=== PATIENT | male | born 1965 | race Caucasian/White ===

== ENCOUNTER 2018-10-03 15:31 | Emergency (ER) | payer OTHER ==
[~2018-10-03] VITALS: Ht 180.3 cm; Wt 86.2 kg
[2018-10-03 15:38] VITALS: Ht 180.3 cm; Wt 86.2 kg
[2018-10-03 18:05] LABS: BASOPHIL % 0.3 % (0-2); PLATELET COUNT 205 x10^3mcL (130-400); RED CELL DISTRIBUTION WIDTH 13.6 % (11.5-14.5)
[2018-10-03 18:08] LABS: CARBON DIOXIDE 25.5 mmol/L (21-32); CHLORIDE SERUM 102 mmol/L (98-107); GFR1 > 60 mL/min; GLUCOSE SERUM 79 mg/dL (74-106); POTASSIUM SERUM 4.1 mmol/L (3.5-5.1); SODIUM SERUM 139 mmol/L (136-145)
[2018-10-03 18:13] LABS: ALBUMIN 4.5 g/dL (3.4-5.0); ALKALINE PHOSPHATASE 31 U/L (46-116); ALT/SGPT 39 U/L (16-63); AST/SGOT 23 U/L (15-37); BILIRUBIN TOTAL 0.86 mg/dL (0.20-1.00); TOTAL PROTEIN, SERUM 7.6 g/dL (6.4-8.2)
[2018-10-03 19:14] VITALS: BP 145/105
== END 2018-10-03 19:14 | disposition home or self-care (01) ==
LOC: ED 15:31
PROVIDERS: Emergency Medicine
DX: R11.10 Vomiting, unspecified (principal); H11.31 Conjunctival hemorrhage, right eye
CPT/HCPCS: 36415; J7030; Q0092